=== PATIENT | female | born 1980 | race Caucasian/White ===

== ENCOUNTER 2022-03-19 09:19 | Outpatient (CLI) | payer OTHER | END 2022-03-19 09:20 | disposition home or self-care (01) | LOC: BICMRI 09:19 | PROVIDERS: ATTEND Obstetrics & Gynecology | DX: Z80.3 Family history of malignant neoplasm of breast (principal) | CPT/HCPCS: A9577; C8908 ==

== ENCOUNTER 2023-10-11 08:03 | Observation (INO) | payer OTHER ==
[2023-10-10 12:00] VITALS: BMI 26.6
[2023-10-11 08:03] LABS: #Eosinphils 0.2 thou/uL (0.0-0.7); #Monocytes 0.4 thou/uL (0.11-0.59); #Neutrophils 2.7 thou/uL (1.40-6.50); %Basophils 0.6 % (0.0-1.0); %Lymphocytes 34.7 % (21.0-51.0); %Neutrophils 54.7 % (42.0-75.0); Hematocrit 42.6 % (36.0-47.0); Hemoglobin 13.9 g/dL (12.0-16.0); Mean Corpuscular HGB CONC 32.6 g/dL (32.0-36.0); Mean Corpuscular Hemoglobin 29.1 pg (27.0-31.0); Mean Corpuscular Volume 89.1 fl (78.0-98.0); Mean Platelet Volume 10.3 fL (7.4-10.4); Platelet Count 233 10x3/uL (130-400); RBC Distribution Width 12.8 % (11.5-14.5); Red Blood Cell (RBC) Count 4.78 mill/uL (4.20-5.40)
[2023-10-11] MEDS ORDERED: CEFAZOLIN 2 GM VIAL ONE (08:06)
[2023-10-11] MEDS ORDERED: Sodium Chloride 0.9% 100 ML ONE (08:06)
[2023-10-11] MEDS ORDERED: Vancomycin 1 GM/200 ML (FROZEN) BAG ONE (08:06)
[2023-10-11] MEDS ORDERED: Lidocaine 1% MPF 2 ML VIAL ONE (08:06)
[2023-10-11 08:18] LABS: BHCG - Serum Negative (NEGATIVE); Pregs Control Background? CLEAR/WHITE (CLR/WHITE); Pregs Control Bar Appear? YES (CONTROL BAR)
[2023-10-11] MEDS ORDERED: fentaNYL PF 100 MCG/2 ML SYRINGE ONE (08:32)
[2023-10-11] MEDS ORDERED: PROPOFOL 20 ML ONE (08:32)
[2023-10-11] MEDS ORDERED: Lidocaine 1% PF 5 ML VIAL ONE (08:34)
[2023-10-11] MEDS ORDERED: fentaNYL 50 mcg/mL 1 mL Vial ONE (08:40)
[2023-10-11] MEDS ORDERED: Midazolam HCl 2 mg/2 ml Vial ONE (08:41)
[2023-10-11] MEDS ORDERED: Bupivacaine PF 0.5% 30 ML VIAL ONE (08:41)
[2023-10-11] MEDS ORDERED: Scopolamine 1 mg/72 hour Patch ONE (08:45)
[2023-10-11 08:46] LABS: Anion Gap 15 mmol/L (10-20); BUN (Urea Nitrogen) 7 mg/dL (7.0-18.7); Calc. Creatinine Clearance 105 mL/min (70-130); Calcium 9.7 mg/dL (7.8-10.44); Carbon Dioxide 23 mmol/L (22-29); Chloride 105 mmol/L (98-107); Estimated GFR 98; Glucose 89 mg/dL (70-105); Potassium 4.1 mmol/L (3.5-5.1); Sodium 139 mmol/L (136-145)
[2023-10-11] MEDS ORDERED: fentaNYL 50 mcg/mL 1 mL Vial SLOW IVP PRN (09:40)
[2023-10-11] MEDS ORDERED: oxyCODONE 5 MG TAB PO PRN ×2 (09:41)
[2023-10-11] MEDS ORDERED: Promethazine HCl 25 MG/ML VIAL IM PRN ×2 (09:45→10:57)
[2023-10-11] MEDS ORDERED: Ropivacaine 0.2% 550 ML 550 ML NERVE BLCK SCH (09:45)
[2023-10-11] MEDS ORDERED: Ondansetron PF 4 MG/2 ML Vial IVP PRN (09:45)
[2023-10-11] MEDS ORDERED: Zolpidem Tartrate 5 MG TAB PO PRN (09:45)
[2023-10-11] MEDS ORDERED: Dexamethasone 4 mg/ml Vial ONE (10:33)
[2023-10-11] MEDS ORDERED: Ondansetron PF 4 MG/2 ML Vial ONE (10:33)
[2023-10-11] MEDS ORDERED: Ketorolac Tromethamine 30 MG (1 mL) VIAL ONE (10:33)
[2023-10-11] MEDS ORDERED: HYDROmorphone 2 MG/ML VIAL SLOW IVP PRN (10:57)
[2023-10-11] MEDS ORDERED: Ondansetron HCl/PF 4 MG/2 ML Vial IVP PRN (10:57)
[2023-10-11] MEDS ORDERED: Promethazine HCl 25 MG/ML VIAL ONE (12:09)
[2023-10-11] MEDS ORDERED: traMADol HCl 50 MG TAB PO PRN ×2 (12:10→12:27)
[2023-10-11] MEDS ORDERED: HYDROcodone/Acetaminophen 7.5/325 mg Tablet PO PRN ×2 (12:10)
[2023-10-11] MEDS ORDERED: Bisacodyl 10 MG SUPP PR PRN (12:10)
[2023-10-11] MEDS ORDERED: Milk Of Magnesia 30 ML UDCUP PO PRN (12:10)
[2023-10-11] MEDS ORDERED: Acetaminophen 500 MG TAB PO PRN ×2 (12:10→12:23)
[2023-10-11] MEDS ORDERED: diphenhydrAMINE 50 MG CAP PO PRN (12:10)
[2023-10-11] MEDS ORDERED: Methocarbamol 500 MG TAB PO PRN (12:10)
[2023-10-11] MEDS: Ketorolac Tromethamine 30 MG (1 mL) VIAL IVP SCH (13:32)
[2023-10-11] MEDS: Dextrose 5 %-0.45 % NaCl 1,000 ML IV SCH (13:47)
[2023-10-11] MEDS: Acetaminophen 500 MG TAB PO SCH (13:47)
[2023-10-11] MEDS: CEFAZOLIN 2 GM in Sodium Chloride 0.9% 100 ML IVPB SCH (17:06)
[2023-10-11] MEDS: Vancomycin 1 GM in Premix 1 BAG IVPB SCH (20:34)
[2023-10-11] MEDS: Famotidine 20 MG TAB PO SCH (20:35)
[2023-10-12 08:40] VITALS: TEMP 98
[2023-10-12] MEDS ORDERED: Ondansetron ODT 4 MG TAB PO PRN (12:01)
[2023-10-12 12:36] VITALS: BP 107/72
[2023-10-14] MEDS ORDERED: FLU VACC QS2023-24(6MOS UP)/PF 60 MCG/0.5 ML SYRINGE IM ONE (09:00)
== END 2023-10-12 13:57 | disposition home or self-care (01) ==
LOC: SDC 08:03 → SURG A 12:10
PROVIDERS: ADMIT Orthopaedic Surgery; ATTEND Orthopaedic Surgery
PROC: 0MQN4ZZ Repair Right Knee Bursa and Ligament, Percutaneous Endoscopic Approach (ICD-10-PCS; principal; 2023-10-11)
DX: S83.511D Sprain of anterior cruciate ligament of right knee, subsequent encounter (principal); S83.281D Other tear of lateral meniscus, current injury, right knee, subsequent encounter; M25.361 Other instability, right knee; Z91.048 Other nonmedicinal substance allergy status; X58.XXXD Exposure to other specified factors, subsequent encounter
CPT/HCPCS: 80048; 84703; 85025; A4306; C1713; C1889; J0665; J1100; J1885; J2250; J2405; J2550; J2704; J2795; J3010; J3370-JW; J3490; J7042